=== PATIENT | female | born 2000 | race Caucasian/White ===

== ENCOUNTER 2020-09-16 13:26 | Emergency (ER) | payer MEDICAID ==
[~2020-09-16] VITALS: Ht 157.5 cm; Wt 42.7 kg
--- NOTE | 2020-09-16 15:49 | NUR ---
NO VOID TODAY
[2020-09-16 16:40] LABS: CLARITY,URINE CLEAR (Clear); COLOR,URINE YELLOW (Yellow); GLUCOSE, URINE NEGATIVE (Neg); KETONES,URINE 15 mg/dl (Neg); LEUKOCYTE ESTERASE ,URINE NEGATIVE (Neg); NITRITES, URINE NEGATIVE (Neg); OCCULT BLOOD,URINE NEGATIVE (Neg); PROTEIN,URINE NEGATIVE (Neg)
[2020-09-16 16:41] LABS: URINE HCG NEGATIVE (NEG)
[2020-09-16 16:44] LABS: UA COLLECTION TYPE STRAIGHT CATH
[2020-09-16 17:53] VITALS: BP 98/0
== END 2020-09-16 18:01 | disposition home or self-care (01) ==
LOC: ER 13:26
DX: Z00.00 Encounter for general adult medical examination without abnormal findings (principal); Z98.890 Other specified postprocedural states
CPT/HCPCS: 81003; 81025; 99283